=== PATIENT | female | born 1990 | race Caucasian/White ===

== ENCOUNTER → 2017-11-01 | Outpatient (CLI) | payer OTHER ==
[2017-11-01 16:28] LABS: BASO # 0.1 10^3/uL (0.0-0.2); BASO % 0.5 % (0.0-1.0); EOS # 0.2 10^3/uL (0.0-0.50); EOS % 1.4 % (0.0-3.0); HEMATOCRIT 41.6 % (36.0-47.0); HEMOGLOBIN 14.2 g/dl (12.0-15.5); IMMATURE GRANULOCYTE % 0.6 % (0-3.0); LYMPH # 2.4 10^3/uL (1.5-6.5); LYMPH % 21.3 % (24.0-44.0); MEAN CORPUSCULAR HEMOGLOBIN 30.1 pg (27.0-33.0); MEAN CORPUSCULAR HGB CONC 34.1 g/dl (32.0-36.5); MEAN CORPUSCULAR VOLUME 88.1 fl (80.0-96.0); MONO # 0.9 10^3/uL (0.0-0.8); MONO % 8.3 % (0.0-5.0); NEUTROPHILS # 7.5 10^3/uL (1.8-7.7); NEUTROPHILS % 67.9 % (36.0-66.0); PLATELET COUNT, AUTOMATED 357 10^3/uL (150-450); RED BLOOD COUNT 4.72 10^6/uL (4.00-5.40); RED CELL DISTRIBUTION WIDTH 12.8 % (11.5-14.5); WHITE BLOOD COUNT 11.1 10^3/uL (4.0-10.0)
[2017-11-01 17:28] LABS: CHLAMYDIA DNA AMPLIFICATION NEGATIVE (NEGATIVE); GC DNA AMPLIFICATION NEGATIVE (NEGATIVE)
[2017-11-03 09:03] LABS: RUBELLA IgG QUALITATIVE IMMUNE (IMMUNE)
[2017-11-03 09:17] LABS: HBsAg Prenatal NEGATIVE (NEGATIVE)
[2017-11-03 09:32] LABS: HEPATITIS C VIRUS ABY INDEX < 0.0 INDEX (<0.8)
[2017-11-03 09:33] LABS: HIV 1&2 SCREEN CENTAUR NEGATIVE (NEGATIVE)
== END ==
LOC: M SMT 13:02
DX: Z34.81 Encounter for supervision of other normal pregnancy, first trimester (principal); Z3A.08 8 weeks gestation of pregnancy
CPT/HCPCS: 86762

== ENCOUNTER → 2017-12-09 | Outpatient (CLI) | payer OTHER, BC, MEDICAID, SELFPAY | LOC: M RAD 10:00 | DX: Z34.82 Encounter for supervision of other normal pregnancy, second trimester (principal) | CPT/HCPCS: 76811 ==

== ENCOUNTER → 2018-01-13 | Outpatient (CLI) | payer OTHER | LOC: M RAD 08:26 | DX: Z36.2 Encounter for other antenatal screening follow-up (principal); Z3A.24 24 weeks gestation of pregnancy | CPT/HCPCS: 76816 ==

== ENCOUNTER → 2018-04-07 | Outpatient (REF) | payer OTHER | LOC: M LAB REF 11:57 | DX: Z34.83 Encounter for supervision of other normal pregnancy, third trimester (principal); Z3A.00 Weeks of gestation of pregnancy not specified | CPT/HCPCS: 87081 ==

== ENCOUNTER 2018-04-24 08:24 | Inpatient (IN) | payer OTHER ==
[2018-04-24] MEDS: LACTATED RINGER'S 1000 ML IV (08:55)
[2018-04-24] MEDS: PRENATAL VITAMINS CHEWABLE TABLET PO (09:00)
[2018-04-24 09:18] LABS: HEMATOCRIT 39.5 % (36.0-47.0); HEMOGLOBIN 13.5 g/dl (12.0-15.5); MEAN CORPUSCULAR HEMOGLOBIN 30.2 pg (27.0-33.0); MEAN CORPUSCULAR HGB CONC 34.2 g/dl (32.0-36.5); MEAN CORPUSCULAR VOLUME 88.4 fl (80.0-96.0); PLATELET COUNT, AUTOMATED 286 10^3/uL (150-450); RED BLOOD COUNT 4.47 10^6/uL (4.00-5.40); RED CELL DISTRIBUTION WIDTH 12.9 % (11.5-14.5); WHITE BLOOD COUNT 13.4 10^3/uL (4.0-10.0)
[2018-04-24] MEDS: LR 1,000 ML IV ×3 (10:04→16:50)
[2018-04-24] MEDS: BICITRA 30ML SOLN UDC PO (10:12)
[2018-04-24] MEDS ORDERED: MORPHINE PRES-FREE INJ 10 MG/10 ML VIAL (J2274) As Ordered (10:26)
[2018-04-24] MEDS ORDERED: NALOXONE INJ 0.4 MG/1 ML VIAL (J2310) IV ×2 (10:27)
[2018-04-24] MEDS ORDERED: KETOROLAC 60 MG/2 ML VIAL (J1885) As Ordered (10:42)
[2018-04-24] MEDS ORDERED: ONDANSETRON 4MG/2ML VIAL (J2405) As Ordered (10:42)
[2018-04-24] MEDS ORDERED: dexameTHASONE 4 MG/ML 1ML VIAL (J1100) As Ordered (10:42)
[2018-04-24] MEDS ORDERED: RHOGAM 300 MCG (1500 IU) INJ (J2790) IM (11:45)
[2018-04-24] MEDS ORDERED: MOM 30ML SUSPENSION UDC PO (11:45)
[2018-04-24] MEDS ORDERED: fentaNYL 100 MCG/2 ML INJECTION (J3010) IV (11:45)
[2018-04-24] MEDS ORDERED: MORPHINE 10 MG/ML 1ML VIAL (J2270) IV (11:45)
[2018-04-24] MEDS ORDERED: MEASLES,MUMPS,RUBELLA VACCINE INJ (MMR-II) (90707) SC (11:45)
[2018-04-24] MEDS ORDERED: NALBUPHINE HCL 10 MG/ML AMP (J2300) IV (11:45)
[2018-04-24] MEDS ORDERED: PERCOCET 5MG/325MG TAB PO (11:45)
[2018-04-24] MEDS ORDERED: ONDANSETRON 4MG/2ML VIAL (J2405) IV (11:45)
[2018-04-24] MEDS: OXYTOCIN DRIP 30 UNITS in APPROPRIATE DILUENT 1 EA IV (13:26)
[2018-04-24] MEDS: METOCLOPRAMIDE INJ 10MG/2ML VIAL (J2765) IV (15:55)
[2018-04-24] MEDS: KETOROLAC 30 MG/ML VIAL (J1885) IV ×2 (16:50→23:01)
[2018-04-24] MEDS: ONDANSETRON 4MG/2ML VIAL (J2405) IV (18:56)
[2018-04-24] MEDS: NALBUPHINE HCL 10 MG/ML AMP (J2300) IV (19:52)
[2018-04-25] MEDS: LR 1,000 ML IV ×4 (01:18→19:33)
[2018-04-25] MEDS: PERCOCET 5MG/325MG TAB PO ×3 (06:01→19:25)
[2018-04-25] MEDS: KETOROLAC 30 MG/ML VIAL (J1885) IV (06:02)
[2018-04-25] MEDS: PRENATAL VITAMINS CHEWABLE TABLET PO (08:51)
[2018-04-25] MEDS: ADACEL/BOOSTRIX VACCINE (DIPHTH/PERTUSS/ACELL/TETANUS)0.5ML SYR (90715) IM (11:40)
[2018-04-25] MEDS: IBUPROFEN 800 MG TAB PO ×2 (14:23→20:46)
[2018-04-25] MEDS: DOCUSATE SODIUM 100 MG CAP PO (19:25)
[2018-04-26] MEDS: PERCOCET 5MG/325MG TAB PO ×3 (02:26→11:40)
[2018-04-26] MEDS: IBUPROFEN 800 MG TAB PO (05:01)
[2018-04-26] MEDS: PRENATAL VITAMINS CHEWABLE TABLET PO (07:45)
== END 2018-04-26 12:33 | disposition home or self-care (01) | DRG 540 ==
LOC: M LDI 08:24 → M OBS 13:14
PROVIDERS: Obstetrics & Gynecology
PROC: 10D00Z1 Extraction of Products of Conception, Low, Open Approach (ICD-10-PCS; principal; 2018-04-24 10:16)
DX: O32.1XX0 Maternal care for breech presentation, not applicable or unspecified (principal); O75.82 Onset (spontaneous) of labor after 37 completed weeks of gestation but before 39 completed weeks gestation, with delivery by (planned) cesarean section; Z3A.38 38 weeks gestation of pregnancy; Z37.0 Single live birth

== ENCOUNTER → 2018-10-05 | Outpatient (CLI) | payer OTHER ==
[~2018-10-05] MED LIST: IBUP1TAB7 PO; OMEP40CA2 PO; PERCOCET PO; PRENTAB9 PO; UNIS25TA3 PO
== END ==
LOC: M SMT 13:41
PROVIDERS: ATTEND Obstetrics & Gynecology
DX: Z13.79 Encounter for other screening for genetic and chromosomal anomalies (principal)

== ENCOUNTER → 2018-12-26 | Outpatient (REF) | payer OTHER ==
[~2018-12-26] MED LIST changes: +KEFL500C17 PO
== END ==
LOC: M SFHCPLAZ 17:27
PROVIDERS: ATTEND Obstetrics & Gynecology
DX: R87.615 Unsatisfactory cytologic smear of cervix (principal); B37.3 Candidiasis of vulva and vagina

== ENCOUNTER 2019-01-01 20:18 | Emergency (ER) | payer OTHER ==
[~2019-01-01] VITALS: Ht 170.2 cm; Wt 79.5 kg
[~2019-01-01 20:18] MED LIST changes: -KEFL500C17 PO; -OMEP40CA2 PO; +OMEP40CA97 PO
[2019-01-01 20:43] LABS: BASO # 0.1 10^3/uL (0.0-0.2); BASO % 0.6 % (0.0-1.0); EOS # 0.1 10^3/uL (0.0-0.50); EOS % 0.7 % (0.0-3.0); HEMATOCRIT 40.6 % (36.0-47.0); HEMOGLOBIN 13.6 g/dl (12.0-15.5); LYMPH # 3.4 10^3/uL (1.5-4.5); LYMPH % 27.1 % (24.0-44.0); MEAN CORPUSCULAR HEMOGLOBIN 29.8 pg (27.0-33.0); MEAN CORPUSCULAR HGB CONC 33.5 g/dl (32.0-36.5); MEAN CORPUSCULAR VOLUME 88.8 fl (80.0-96.0); MONO % 8.3 % (0.0-5.0); NEUTROPHILS # 7.9 10^3/uL (1.8-7.7); PLATELET COUNT, AUTOMATED 368 10^3/uL (150-450); RED BLOOD COUNT 4.57 10^6/uL (4.00-5.40); WHITE BLOOD COUNT 12.6 10^3/uL (4.0-10.0)
[2019-01-01 21:21] LABS: BLOOD UREA NITROGEN 10 MG/DL (7-18); CALCIUM LEVEL 9.2 MG/DL (8.5-10.1); CARBON DIOXIDE LEVEL 27 MEQ/L (21-32); CHLORIDE LEVEL 107 MEQ/L (98-107); CREATININE FOR GFR 0.72 MG/DL (0.55-1.30); GLOMERULAR FILTRATION RATE > 60.0 (>60); GLUCOSE, FASTING 84 MG/DL (70-100); HCG, SERUM QUANTITATIVE 949 MIU/ML; POTASSIUM SERUM 4.7 MEQ/L (3.5-5.1); SODIUM LEVEL 139 MEQ/L (136-145)
--- NOTE | 2019-01-01 22:35 | REPVR ---
EXAM: US First Trimester, Transabdominal and US , Transvaginal EXAM DATE/TIME: 01/01/2019 9:19 PM CLINICAL HISTORY: 28 years old, female; Lmp or gestational age (in weeks): Unkown; ; Vaginal bleeding TECHNIQUE: Imaging protocol: Real-time transabdominal obstetrical ultrasound of the maternal pelvis and a first trimester , less than 14 weeks 0 days, with image documentation. Transvaginal imaging was used for better evaluation of the fetus and adnexa. COMPARISON: No relevant prior studies available. FINDINGS: GESTATION: Gestation: No intrauterine or extrauterine is identified. No gestational sac, yolk sac, or pole is visualized. Heart rate: No cardiac activity is visualized. Placenta: No placenta is visualized. Amniotic fluid: No amniotic fluid is visualized. MATERNAL: Uterus: The uterus is retroverted and measures 8.3 cm x 3.6 cm x 5.3 cm this no myometrial mass is visualized. The endometrium measures 12 mm in thickness. Cervix: Incidental note is made of several nabothian cysts in the cervix. Right adnexa: The right ovary measures 2.8 cm x 1.4 cm x 2.3 cm. There is a 1.1 cm x 0.9 cm x 1.2 cm simple cystic lesion in the right adnexa, which may represent a right ovarian cyst or paraovarian cyst. Blood flow is demonstrated to the right ovary without evidence for right ovarian torsion. No right tubal mass is identified. Left adnexa: The left ovary measures 2.6 cm x 1.7 cm x 1.8 cm. There is a thick walled cyst in the left ovary measuring 2 cm x 1.4 cm x 1.8 cm, which likely represents a corpus luteal cyst. Blood flow is demonstrated to the left ovary without evidence for left ovarian torsion. No left tubal mass is identified. Intraperitoneal: There is a trace amount of free fluid in the cul-de-sac. IMPRESSION: No intrauterine or extrauterine identified in the pelvis. Differential diagnostic considerations include a spontaneous complete , an early normal or abnormal , or an ectopic . Followup serial beta hCG levels and a repeat obstetrical ultrasound when beta hCG levels reach greater than 2,000 mIU/mL or as clinically indicated are suggested. Electronically signed by: Kaleb Davis On 01/01/2019 22:35:47 PM
[2019-01-01] MEDS ORDERED: KEFL500C17 PO (22:54)
[2019-01-01 23:02] VITALS: BP 138/82
== END 2019-01-01 23:03 | disposition home or self-care (01) ==
LOC: M ED 20:18
DX: O20.0 Threatened abortion (principal); O23.41 Unspecified infection of urinary tract in pregnancy, first trimester; Z3A.00 Weeks of gestation of pregnancy not specified

== ENCOUNTER → 2019-01-03 | Outpatient (CLI) | payer OTHER ==
[~2019-01-03] MED LIST changes: +KEFL500C17 PO; +OMEP40CA2 PO; -OMEP40CA97 PO
== END ==
LOC: M LAB 13:00
PROVIDERS: ATTEND Physician Assistant Medical
DX: O03.9 Complete or unspecified spontaneous abortion without complication (principal)

== ENCOUNTER → 2019-01-10 | Outpatient (CLI) | payer OTHER | LOC: M SMT 11:27 | PROVIDERS: ATTEND Obstetrics & Gynecology | DX: O02.1 Missed abortion (principal) ==

== ENCOUNTER → 2019-01-20 | Outpatient (CLI) | payer OTHER ==
[~2019-01-20] MED LIST changes: -OMEP40CA2 PO; +OMEP40CA97 PO
== END ==
LOC: M SMT 14:37
PROVIDERS: ATTEND Obstetrics & Gynecology
DX: O02.1 Missed abortion (principal); Z3A.00 Weeks of gestation of pregnancy not specified

== ENCOUNTER → 2019-06-08 | Outpatient (REF) | payer OTHER ==
[2019-06-08 18:39] LABS: INFLUENZA A AMPLIFICATION NEGATIVE (NEGATIVE); INFLUENZA B AMPLIFICATION POSITIVE (NEGATIVE)
== END ==
LOC: M LAB REF 17:37
PROVIDERS: ATTEND Physician Assistant
DX: R50.9 Fever, unspecified (principal); R05 Cough

== ENCOUNTER → 2019-12-08 | Outpatient (REF) | payer OTHER ==
[2019-12-08 22:52] LABS: CHLAMYDIA DNA AMPLIFICATION NEGATIVE (NEGATIVE); GC DNA AMPLIFICATION NEGATIVE (NEGATIVE)
== END ==
LOC: M SFHCWAGY 17:21
PROVIDERS: ATTEND Obstetrics & Gynecology
DX: Z11.3 Encounter for screening for infections with a predominantly sexual mode of transmission (principal)

== ENCOUNTER → 2020-04-15 | Outpatient (REF) | payer OTHER ==
[2020-04-15 21:30] LABS: APPEARANCE, URINE CLOUDY (CLEAR); BACTERIA, URINE AUTO NEGATIVE (NEGATIVE); BILIRUBIN, URINE AUTO NEGATIVE (NEGATIVE); BLOOD, URINE BLOOD 2+ (NEGATIVE); CALCIUM OXALATE CRYSTALS LARGE; COLOR, URINE YELLOW (YELLOW); GLUCOSE, URINE (UA) AUTO NEGATIVE (NEGATIVE); KETONE, URINE AUTO TRACE mg/dL (NEGATIVE); LEUKOCYTE ESTERASE, URINE AUTO 2+ (NEGATIVE); MUCUS, URINE SMALL (NEGATIVE); NITRITE, URINE AUTO NEGATIVE (NEGATIVE); PROTEIN, URINE AUTO 2+ mg/dL (NEGATIVE); RBC, URINE AUTO 48 /HPF (0-3); SPECIFIC GRAVITY URINE AUTO 1.034 (1.002-1.035); SQUAMOUS EPITHELIAL CELL UR AU 17 /HPF (0-6); UROBILINOGEN, URINE AUTO 0.2 mg/dL (0.0-2.0); WBC, URINE AUTO 82 /HPF (0-3)
== END ==
LOC: M LAB REF 21:04
PROVIDERS: ATTEND Physician Assistant Medical
DX: N39.0 Urinary tract infection, site not specified (principal)

== ENCOUNTER → 2021-03-25 | Outpatient (REF) | payer OTHER ==
[~2021-03-25] MED LIST changes: +OMEP40CA4 PO; -OMEP40CA97 PO
== END ==
LOC: M SFHCWAGY 19:16
PROVIDERS: ATTEND Obstetrics & Gynecology
DX: Z12.4 Encounter for screening for malignant neoplasm of cervix (principal)

== ENCOUNTER → 2021-04-29 | Outpatient (REF) | payer OTHER | LOC: M SFHCWAGY 10:05 | PROVIDERS: ATTEND Obstetrics & Gynecology | DX: R87.610 Atypical squamous cells of undetermined significance on cytologic smear of cervix (ASC-US) (principal) ==